=== PATIENT | female | born 1970 | race Caucasian/White ===

== ENCOUNTER 2019-02-12 23:58 | Inpatient (IN) | payer OTHER ==
[~2019-02-12] VITALS: Ht 165.1 cm; Wt 98.0 kg
[2019-02-13 00:37] VITALS: BP 106/70
[2019-02-13] MEDS ORDERED: PLEASE ENTER ALLERGIES MC SCH (01:30)
[2019-02-13] MEDS ORDERED: ENALAPRILAT 1.25 MG/ML, 2ML IVPush PRN (01:30)
[2019-02-13] MEDS ORDERED: ZOSYN PER PHARMACY MC PRN (01:30)
[2019-02-13] MEDS ORDERED: ACETAMINOPHEN 325 MG TABLET PO PRN (01:30)
[2019-02-13] MEDS ORDERED: KETOROLAC 30 MG/1 ML IV PRN (01:30)
[2019-02-13] MEDS ORDERED: PIPERACILLIN/TAZO/PMX 4.5GM 100 ML IV ONE (01:30)
[2019-02-13] MEDS: HYDROmorphone 2 MG/ML, 1ML IVPush PRN ×4 (01:36→23:02)
[2019-02-13] MEDS: LACTATED RINGERS 1,000 ML IV SCH ×3 (01:36→19:48)
[2019-02-13 03:27] VITALS: BP 105/65
[2019-02-13 03:30] VITALS: BP 103/65
[2019-02-13 04:46] LABS: BASOPHILS # (AUTO) 0.03 x10^3/uL (0-0.1); BASOPHILS % (AUTO) 0 % (0-1); EOSINOPHILS # (AUTO) 0.07 x10^3/uL (0-0.4); EOSINOPHILS % (AUTO) 1 % (1-7); LYMPHOCYTES # (AUTO) 1.19 x10^3/uL (1-3.4); LYMPHOCYTES % (AUTO) 9 % (22-44); MD NO; MEAN CORPUSCULAR HEMOGLOBIN 31.5 pg (27.0-34.8); MEAN CORPUSCULAR VOLUME 92.9 fL (80-100); MEAN PLATELET VOLUME 7.8 fL (7.4-10.4); MONOCYTES # (AUTO) 0.95 x10^3/uL (0.2-0.8); MONOCYTES % (AUTO) 7 % (2-9); NEUTROPHILS # (AUTO) 11.59 x10^3/uL (1.8-6.8); NEUTROPHILS % (AUTO) 84 % (42-75); PLATELET COUNT 352 x10^3/uL (130-400); RED BLOOD COUNT 4.02 x10^6/uL (3.82-5.3); RED CELL DISTRIBUTION WIDTH 13.3 % (9.6-15.2)
[2019-02-13 04:54] LABS: ANION GAP 5 mmol/L (5-15); CALCIUM 7.6 mg/dL (8.5-10.1); CHLORIDE 108 mmol/L (98-107); CREATININE 0.71 mg/dL (0.55-1.02)
[2019-02-13] MEDS ORDERED: LISI1TAB5 PO (06:42)
[2019-02-13 06:46] VITALS: BP 104/70
[2019-02-13] MEDS: PIPERACILLIN/TAZO/PMX 4.5GM 100 ML IV SCH ×3 (08:52→19:48)
[2019-02-13] MEDS: HYDROmorphone 2MG TABLET PO PRN ×2 (11:24→17:01)
[2019-02-13 12:12] VITALS: BP 95/64
[2019-02-13 18:37] VITALS: BP 106/68
[2019-02-13] MEDS: HYDROcodone/APAP 5/325 TABLET PO PRN (19:48)
[2019-02-14 01:37] VITALS: BP 110/69
[2019-02-14] MEDS: PIPERACILLIN/TAZO/PMX 4.5GM 100 ML IV SCH ×4 (01:38→19:58)
[2019-02-14] MEDS: HYDROcodone/APAP 5/325 TABLET PO PRN ×4 (01:38→21:13)
[2019-02-14] MEDS: HYDROmorphone 2 MG/ML, 1ML IVPush PRN ×2 (04:29→17:50)
[2019-02-14 05:00] LABS: BASOPHILS # (AUTO) 0.03 x10^3/uL (0-0.1); BASOPHILS % (AUTO) 1 % (0-1); EOSINOPHILS # (AUTO) 0.22 x10^3/uL (0-0.4); EOSINOPHILS % (AUTO) 3 % (1-7); LYMPHOCYTES # (AUTO) 1.85 x10^3/uL (1-3.4); LYMPHOCYTES % (AUTO) 27 % (22-44); MD NO; MEAN CORPUSCULAR HEMOGLOBIN 31.6 pg (27.0-34.8); MEAN CORPUSCULAR HGB CONC 33.8 g/dL (32.4-35.8); MEAN CORPUSCULAR VOLUME 93.5 fL (80-100); MEAN PLATELET VOLUME 7.8 fL (7.4-10.4); MONOCYTES # (AUTO) 0.66 x10^3/uL (0.2-0.8); MONOCYTES % (AUTO) 9 % (2-9); NEUTROPHILS % (AUTO) 60 % (42-75); PLATELET COUNT 321 x10^3/uL (130-400); RED BLOOD COUNT 3.45 x10^6/uL (3.82-5.3); RED CELL DISTRIBUTION WIDTH 13.9 % (9.6-15.2)
[2019-02-14 05:11] LABS: ANION GAP 3 mmol/L (5-15); CALCIUM 7.6 mg/dL (8.5-10.1); CHLORIDE 108 mmol/L (98-107); CREATININE 0.63 mg/dL (0.55-1.02)
[2019-02-14] MEDS: LACTATED RINGERS 1,000 ML IV SCH (06:39)
[2019-02-14 06:52] VITALS: BP 114/65
[2019-02-14] MEDS ORDERED: FAMOTIDINE 20 MG/2 ML IVPush SCH (10:00)
[2019-02-14] MEDS: SENNA/DOCUSATE TABLET PO SCH ×2 (10:26→21:05)
[2019-02-14] MEDS: SIMETHICONE DROPS 40 MG/0.6 ML BOTTLE PO SCH ×3 (12:31→21:06)
[2019-02-14 12:41] VITALS: BP 113/73
[2019-02-14 19:05] VITALS: BP 142/88
[2019-02-14] MEDS: ONDANSETRON 2MG/ML, 2ML IVPush PRN (19:09)
[2019-02-14] MEDS: FAMOTIDINE 20 MG TABLET PO SCH (21:05)
[2019-02-14] MEDS: HYDROmorphone 2MG TABLET PO PRN (23:07)
[2019-02-15] MEDS ORDERED: LACTATED RINGERS 1,000 ML IV SCH (01:30)
[2019-02-15 01:47] VITALS: BP 120/72
[2019-02-15] MEDS: PIPERACILLIN/TAZO/PMX 4.5GM 100 ML IV SCH ×3 (02:01→14:00)
[2019-02-15] MEDS: SIMETHICONE DROPS 40 MG/0.6 ML BOTTLE PO SCH ×3 (04:11→16:06)
[2019-02-15] MEDS: HYDROcodone/APAP 5/325 TABLET PO PRN (04:49)
[2019-02-15] MEDS: ONDANSETRON 2MG/ML, 2ML IVPush PRN ×2 (04:49→09:46)
[2019-02-15 07:05] VITALS: BP 121/78
[2019-02-15 08:13] LABS: BASOPHILS # (AUTO) 0.04 x10^3/uL (0-0.1); BASOPHILS % (AUTO) 1 % (0-1); EOSINOPHILS # (AUTO) 0.12 x10^3/uL (0-0.4); EOSINOPHILS % (AUTO) 2 % (1-7); LYMPHOCYTES # (AUTO) 1.34 x10^3/uL (1-3.4); LYMPHOCYTES % (AUTO) 25 % (22-44); MD NO; MEAN CORPUSCULAR HEMOGLOBIN 31.2 pg (27.0-34.8); MEAN CORPUSCULAR VOLUME 91.9 fL (80-100); MEAN PLATELET VOLUME 7.7 fL (7.4-10.4); MONOCYTES # (AUTO) 0.47 x10^3/uL (0.2-0.8); MONOCYTES % (AUTO) 9 % (2-9); NEUTROPHILS % (AUTO) 64 % (42-75); PLATELET COUNT 327 x10^3/uL (130-400); RED BLOOD COUNT 3.46 x10^6/uL (3.82-5.3); RED CELL DISTRIBUTION WIDTH 13.6 % (9.6-15.2)
[2019-02-15 08:21] LABS: ANION GAP 3 mmol/L (5-15); CALCIUM 8.2 mg/dL (8.5-10.1); CHLORIDE 109 mmol/L (98-107); CREATININE 0.64 mg/dL (0.55-1.02)
[2019-02-15] MEDS: FAMOTIDINE 20 MG TABLET PO SCH (09:46)
[2019-02-15] MEDS: SENNA/DOCUSATE TABLET PO SCH (09:46)
[2019-02-15] MEDS: HYDROmorphone 2MG TABLET PO PRN ×2 (10:06→15:46)
[2019-02-15] MEDS ORDERED: BISACODYL 10 MG SUPP PR PRN (16:00)
[2019-02-15] MEDS ORDERED: CIPR500T87 PO (16:09)
[2019-02-15] MEDS ORDERED: METR500T PO (16:09)
[2019-02-15 16:58] VITALS: BP 145/90
== END 2019-02-15 19:45 | disposition home or self-care (01) | DRG 389 ==
LOC: 3NW 23:59
PROVIDERS: ADMIT Family Medicine; ATTEND Family Medicine
DX: K56.7 Ileus, unspecified (principal); K57.92 Diverticulitis of intestine, part unspecified, without perforation or abscess without bleeding; D64.9 Anemia, unspecified; E66.9 Obesity, unspecified; I10 Essential (primary) hypertension; K21.9 Gastro-esophageal reflux disease without esophagitis; K76.0 Fatty (change of) liver, not elsewhere classified; N83.202 Unspecified ovarian cyst, left side; Z87.891 Personal history of nicotine dependence; Z68.36 Body mass index [BMI] 36.0-36.9, adult; Z98.82 Breast implant status
CPT/HCPCS: 36415; 87046; 87427; 99285; J3490; 80048; 83735; 84100; 85025; G0378; J1170; J1885; J2405; J2543; J7120